=== PATIENT | male | born 1995 | race Caucasian/White ===

== ENCOUNTER 2016-12-25 22:50 | Emergency (ER) | payer BC ==
--- NOTE | ~2016-12-25 | EKG ---
PATIENT: INDRA MILNER UNIT #: [id number] Ventricular Rate: 44 BPM Atrial Rate: 44 BPM P-R Interval: 150 ms QRS Duration: 78 ms Q-T Interval: 486 ms QTC Calculation(Bezet): 415 ms P Hadley: 44 degrees Calculated R Hadley: 67 degrees Calculated T Hadley: 38 degrees Diagnosis Line: Marked sinus bradycardia with marked sinus Diagnosis Line: arrhythmia Diagnosis Line: Abnormal ECG Diagnosis Line: No previous ECGs available Diagnosis Line: Confirmed by CAMI LOZANO MD ([id number]) on Diagnosis Line: 12/27/2016 1:28:39 PM INTERPRETING MD: BLAKE NATARAJAN
--- NOTE | ~2016-12-25 | CR63 ---
[facility] A Service of [facility] & [facility] RADIOLOGY TEXT RESULTS PATIENT: INDRA MILNER LOCATION: [facility] : 95 UNIT #: [id number] AGE: [address]: Henrry Gregory MD SEX: M ORDER DR: [id number] [facility] [address] [place], [place] [address] [id number] MR#: [id number] Acc #: [id number] NAME: INDRA MILNER : 1995 SEX: M STUDY DATE/TIME: 12/25/2016 23:45 UNIT: [facility] ROOM: STUDY DESCRIPTION: CR Chest 2 View Attending Physician: Henrry Gregory M.D. Ordering Physician: Henrry Gregory M.D. Primary Care Physician: David Phoenix M.D. MEDICAL IMAGING REPORT This report is preliminary unless electronic signature is present EXAM Chest x-ray 12/25 23:45. INDICATIONS Right-side chest and rib pain for 1 day. No trauma. FINDINGS PA and lateral examination of the chest upright shows a good expansion of the parenchyma with a normal distribution of the pulmonary vascularity. There is no indication of congestion, effusion, infiltrate, tumor, or nodular density. The pleural reflections and diaphragmatic contours are normal. The cardiac silhouette and mediastinal anatomy is within normal limits. IMPRESSION Normal chest. Dictated by... Tariq Theodore Jr., M.D. THIS IS AN ELECTRONICALLY VERIFIED REPORT Tariq Theodore Jr., M.D. at 12/26/2016 5:18 PM ROHINI/tmi TD: 12/26/2016 10:41 JOB #: [id number] MEDICAL IMAGING REPORT Page 1 of 1 COPY
[2016-12-26 00:03] LABS: BASOPHIL% 0.1 % (0-2.5); EOSINOPHIL% 0.3 % (0.0-7.0); HEMATOCRIT 45.7 % (38.0-50.0); HEMOGLOBIN 15.1 gm/dL (13.0-16.0); LYMPHOCYTE# 3.2 X10e3 (1.0-3.5); LYMPHOCYTE% 23.6 % (17.0-45.0); MEAN CELL VOLUME 87.1 FL (83-96); MEAN CORPUSCULAR HEMOGLOBIN 28.7 PG (28-34); MEAN PLATELET VOLUME 8.8 FL (6.5-11.5); MONOCYTE# 1.1 X10e3 (0-1.0); NEUTROPHIL# 9.1 X10e3 (1.5-7.1); PLATELET COUNT 281 X10e3 (140-420); RED BLOOD COUNT 5.25 X10e (3.90-5.60); RED CELL DISTRIBUTION WIDTH 13.6 % (11.0-15.5); WHITE BLOOD COUNT 13.4 X10e3 (4.0-10.5)
[2016-12-26 00:04] LABS: DIFF IND NO
[2016-12-26 00:35] LABS: ALBUMIN SERUM 4.9 g/dL (3.5-5.0); BILIRUBIN, DIRECT 0.1 mg/dL (0.0-0.2); BILIRUBIN,INDIRECT 0.7 mg/dL (0.0-0.9); BILIRUBIN,TOTAL 0.8 mg/dL (0.2-2.0); CALCIUM SERUM 9.4 mg/dL (8.4-10.2); CREATININE SERUM 0.9 mg/dL (0.6-1.4); GLOM FILT RATE Estimated 121.7 mL/min (>60); POTASSIUM 3.6 mmol/L (3.5-5.1); PROTEIN TOTAL SERUM 7.2 g/dL (6.0-8.3)
[2016-12-26 01:00] LABS: URINE SOURCE CLEAN CATCH
[2016-12-26 01:06] LABS: URINE APPEARANCE CLEAR; URINE BILIRUBIN NEG (NEG); URINE BLOOD NEG (NEG); URINE COLOR YELLOW; URINE GLUCOSE NEG (NEG); URINE KETONE NEG (NEG); URINE LEUKOCYTE ESTERASE NEG (NEG); URINE NITRATE NEG (NEG); URINE PROTEIN NEG (NEG); URINE SPECIFIC GRAVITY 1.015 (1.003-1.035); URINE UROBILINOGEN 0.2 MG/DL (NEG)
[2016-12-26 01:14] LABS: CULTURE INDICATED? NO
== END 2016-12-26 02:05 | disposition home or self-care (01) ==
LOC: CED 22:50
PROVIDERS: Emergency Medicine
DX: R07.81 Pleurodynia (principal); R10.11 Right upper quadrant pain; F17.200 Nicotine dependence, unspecified, uncomplicated
CPT/HCPCS: 36415; 71020; 80048; 80076; 81003; 85025; 85379; 93005; 96361; 96374; 99284; J1885

== ENCOUNTER → 2016-12-28 | Outpatient (CLI) | payer BC ==
--- NOTE | ~2016-12-28 | CT16 ---
[facility] A Service of [facility] & [facility] RADIOLOGY TEXT RESULTS PATIENT: INDRA MILNER LOCATION: [facility] : 95 UNIT #: [id number] AGE: [address]: Ravi Rausch MD SEX: M ORDER DR: [id number] [address] [address] [id number] O MR#: [id number] Acc #: [id number] NAME: INDRA MILNER : 1995 SEX: M STUDY DATE/TIME: 12/28/2016 14:00 UNIT: [facility] ROOM: STUDY DESCRIPTION: CT Angio Chest for PE Attending Physician: Ravi Rausch M.D. Referring Physician: Ravi Rausch M.D. Ordering Physician: Ravi Rausch M.D. Primary Care Physician: Ravi Rausch M.D. MEDICAL IMAGING REPORT This report is preliminary unless electronic signature is present. EXAM CT angio of the chest with contrast, pulmonary embolism protocol 12/28/2016 HISTORY Shortness of breath and chest pain radiating the right side of the neck since Monday. Right side upper abdominal pain in the ribs. COMPARISON PA and lateral chest radiograph 12/25/2016. No previous CT chest at this institution for comparison. TECHNIQUE 2 mm axial images through the chest after IV contrast administration. 3-D coronal MIP reformed images were obtained. This CT exam was performed with one or more of the following radiation dose reduction techniques: automatic exposure control, adjustment of mA and/or kV according to patient size, and iterative reconstruction. FINDINGS Quality of the study is good. There is no pulmonary embolism. No aortic aneurysm is seen. Relatively poor opacification of the aorta at the time of image acquisition. Trace amount of fluid is seen within the pericardial recesses, and a small amount of residual thymic tissue is present within the anterior mediastinum. No pathologic adenopathy is seen. No pleural effusion. Lungs are clear. Included portions of the upper abdominal organs are within normal limits. No acute osseous abnormalities are identified. More specifically, no displaced right rib fracture is evident. IMPRESSION 1. No acute chest findings. No pulmonary embolism. Clear lungs. [facility] A Service of [facility] & [facility] RADIOLOGY TEXT RESULTS PATIENT: INDRA MILNER LOCATION: [facility] : 95 UNIT #: [id number] AGE: [address]: Ravi Rausch MD SEX: M ORDER DR: Dictated by... Mariana Perla M.D. THIS IS AN ELECTRONICALLY VERIFIED REPORT Mariana Perla M.D. at 12/30/2016 7:14 AM LLH/pcl TD: 12/28/2016 15:40 JOB #: [id number] MEDICAL IMAGING REPORT Page 1 of 1
--- NOTE | ~2016-12-28 | CT2 ---
[facility] A Service of [facility] & [facility] RADIOLOGY TEXT RESULTS PATIENT: INDRA MILNER LOCATION: [facility] : 95 UNIT #: [id number] AGE: [address]: Ravi Rausch MD SEX: M ORDER DR: [id number] [address] [address] [id number] O MR#: [id number] Acc #: [id number] NAME: INDRA MILNER : 1995 SEX: M STUDY DATE/TIME: 12/28/2016 13:06 UNIT: [facility] ROOM: STUDY DESCRIPTION: CT Abd and Pelv W Cont Attending Physician: Ravi Rausch M.D. Referring Physician: Ravi Rausch M.D. Ordering Physician: Ravi Rausch M.D. Primary Care Physician: Ravi Rausch M.D. MEDICAL IMAGING REPORT This report is preliminary unless electronic signature is present. EXAM CT abdomen and pelvis with contrast, 12/28/2016. HISTORY Shortness of breath and chest pain radiating to the right side of the neck since Monday. Right upper abdominal pain under the ribs. COMPARISON No prior abdominal imaging at this institution for comparison. PROCEDURE 5-mm axial images from the lung bases through the lesser trochanters after intravenous contrast administration. Enteric contrast was also administered. Sagittal and coronal reformatted images were obtained. This CT exam was performed with one or more of the following radiation dose reduction techniques: automatic exposure control, adjustment of mA and/or kV according to patient size, and iterative reconstruction. FINDINGS ABDOMEN FINDINGS: Liver, gallbladder, spleen, pancreas, adrenals and kidneys are within normal limits. Limited evaluation of the colon due to lack of enteric contrast opacification at the time of image acquisition. No focal colonic inflammatory changes are identified. The appendix is slightly over upper limits of normal thickness measuring up to 7 mm. No definite periappendiceal inflammatory changes are identified. There is focal small bowel intussusception in the right upper quadrant involving a 3.5 cm segment of what is thought to represent proximal jejunum. A second focal intussusception is seen within the left upper quadrant of the abdomen involving a 3.4 cm in segment. There is very mild STS. [facility] A Service of [facility] RADIOLOGY TEXT RESULTS PATIENT: INDRA MILNER LOCATION: [facility] : 95 UNIT #: [id number] AGE: [address]: Ravi Rausch MD SEX: M ORDER DR: distension of right mid abdominal small bowel up to 2.9 cm. However, no high-grade small bowel obstruction is suspected, as contrast is seen more distally within the region of the terminal ileum. PELVIS FINDINGS: The urinary bladder, prostate, and rectum are within normal limits. There is trace pelvic free fluid. No drainable fluid collection or abscess is identified. IMPRESSION 1. There are 2 foci of short segment small bowel intussusceptions within the right mid to upper abdomen and in the left upper quadrant of the abdomen, thought to be localized within the proximal jejunum, as described above. There is no evidence of high-grade upstream small bowel obstruction at this time. These findings can be seen as transient phenomenon on CT imaging. However, if the patient's abdominal pain persists, a small bowel follow-through may prove helpful for further evaluation. Certainly, no underlying mass lesion or lead point is identified with respect to the regions of intussusception. 2. There is trace pelvic free fluid. However, no drainable fluid collection or abscess is seen. 3. The appendiceal size is just slightly upper limits normal. Given the lack of periappendiceal inflammatory change, this may simply represent a normal variant for this patient. Correlate with physical examination findings. 4. CT chest performed on this same date has been dictated separately. Dictated by... Mariana Perla M.D. THIS IS AN ELECTRONICALLY VERIFIED REPORT Mariana Perla M.D. at 12/30/2016 7:14 AM VIN/sherrell TD: 12/28/2016 16:01 JOB #: [id number] MEDICAL IMAGING REPORT Page 1 of 1
--- NOTE | ~2016-12-28 | US85 ---
[facility] A Service [facility] RADIOLOGY TEXT RESULTS PATIENT: INDRA MILNER LOCATION: [facility] : 95 UNIT #: [id number] AGE: [address]: Ravi Rausch MD SEX: M ORDER DR: [id number] [address] [address] [id number] O MR#: [id number] Acc #: [id number] NAME: INDRA MILNER : 1995 SEX: M STUDY DATE/TIME: 12/28/2016 12:51 UNIT: [facility] ROOM: STUDY DESCRIPTION: [facility] or [facility] Attending Physician: Ravi Rausch M.D. Referring Physician: Ravi Rausch M.D. Ordering Physician: Ravi Rausch M.D. Primary Care Physician: Ravi Rausch M.D. MEDICAL IMAGING REPORT This report is preliminary unless electronic signature is present. EXAM Color Doppler ultrasound examination of the right lower extremity HISTORY Right lower extremity pain for the past 6 weeks. TECHNIQUE Ultrasound evaluation was performed with martinez-scale, color-flow and Doppler spectral waveform analysis. TECHNIQUE Venous ultrasound examination of the right lower extremity was performed using grayscale, spectral Doppler and color flow Doppler imaging. FINDINGS The examination is negative. There is no evidence of right lower extremity deep venous thrombus from the groin to the lower calf. Visualized greater saphenous vein is also patent. IMPRESSION Negative examination. No evidence of right lower extremity deep venous thrombosis. Dictated by... Tariq Weeks M.D. THIS IS AN ELECTRONICALLY VERIFIED REPORT Tariq Weeks M.D. at 12/28/2016 6:21 PM VIELKA/demetrio TD: 12/28/2016 14:15 JOB #: [id number] [facility] A [facility] RADIOLOGY TEXT RESULTS PATIENT: INDRA MILNER LOCATION: [facility] : 95 UNIT #: [id number] AGE: [address]: Ravi Rausch MD SEX: M ORDER DR: MEDICAL IMAGING REPORT Page 1 of 1
== END | disposition home or self-care (01) ==
LOC: SNIV 12:40
DX: R10.11 Right upper quadrant pain (principal); I26.99 Other pulmonary embolism without acute cor pulmonale; L98.9 Disorder of the skin and subcutaneous tissue, unspecified; K56.1 Intussusception
CPT/HCPCS: 71275; 74177; 93971; Q9967

== ENCOUNTER → 2017-01-04 | Outpatient (CLI) | payer BC ==
--- NOTE | ~2017-01-04 | NM22 ---
[facility] A Service [facility] RADIOLOGY TEXT RESULTS PATIENT: INDRA MILNER LOCATION: [facility] : 95 UNIT #: [id number] AGE: [address]: Ravi Rausch MD SEX: M ORDER DR: [id number] [address] [address] [id number] O MR#: [id number] Acc #: [id number] NAME: INDRA MILNER. : 1995 SEX: M STUDY DATE/TIME: 01/04/2017 12:12 UNIT: [facility] ROOM: STUDY DESCRIPTION: DEMARCUS Hepatobiliary W GB Pharm Attending Physician: Ravi Rausch M.D. Referring Physician: Ravi Rausch M.D. Ordering Physician: Ravi Rausch M.D. Primary Care Physician: Ravi Rausch M.D. MEDICAL IMAGING REPORT This report is preliminary unless electronic signature is present EXAM Hepatobiliary scan. INDICATIONS Right upper quadrant abdominal pain, abdominal bloating, and early satiety, since November 2016. PROCEDURE Patient was administered 5.8 mCi technetium labeled Choletec. Imaging of the upper abdomen was performed for 60 minutes then patient was administered 1.6 mcg of Kinevac IV per protocol. COMPARISON None FINDINGS Liver shows symmetric extraction and excretion of radiotracer. Gallbladder fills by 15 minutes. Ejection fraction is 86.7% per minute at 30 minutes. IMPRESSION Normal Dictated by... Denver Luciano M.D. THIS IS AN ELECTRONICALLY VERIFIED REPORT Denver Luciano M.D. at 01/06/2017 10:11 PM EED/gabi TD: 01/04/2017 16:45 [facility] A Service [facility] RADIOLOGY TEXT RESULTS PATIENT: INDRA MILNER LOCATION: [facility] : 95 UNIT #: [id number] AGE: [address]: Ravi Rausch MD SEX: M ORDER DR: DUNCAN #: [id number] MEDICAL IMAGING REPORT Page 1 of 1 COPY
== END | disposition home or self-care (01) ==
LOC: CNUC 11:34
DX: R10.11 Right upper quadrant pain (principal)
CPT/HCPCS: 78227; A9537; J2805

== ENCOUNTER 2017-01-08 22:09 | Emergency (ER) | payer BC | END 2017-01-08 22:52 | disposition home or self-care (01) | LOC: SED 22:09 | DX: R20.2 Paresthesia of skin (principal); F41.9 Anxiety disorder, unspecified; R42 Dizziness and giddiness | CPT/HCPCS: 99283 ==